=== PATIENT | male | born 1985 | race Caucasian/White ===

== ENCOUNTER 2022-07-10 09:32 | Outpatient (CLI) | payer OTHER, SELFPAY ==
[2022-07-10 18:58] LABS: Alanine Aminotransferase 33 U/L (6-50); Albumin Level 4.9 g/dL (3.5-5.1); Alkaline Phosphatase 76 U/L (38-126); Anion Gap 11 mmol/L (8-16); Aspartate Amino Transferase 77 U/L (17-59); Bilirubin,Total 0.9 mg/dL (0.2-1.3); Blood Urea Nitrogen 14 mg/dL (9-20); Calcium 9.7 mg/dL (8.4-10.2); Carbon Dioxide 25 mmol/L (22-30); Chloride 101 mmol/L (98-107); Estimated Glomerular Filt Rate > 60; Glucose 85 mg/dL (65-110); Sodium 137 mmol/L (137-145)
[2022-07-10 18:59] LABS: Cholesterol 200 mg/dL (0-200); HDL Direct 52 mg/dL; Triglycerides 129 mg/dL (<150)
[2022-07-10 19:18] LABS: LDL Cholesterol Direct 107 mg/dL
[2022-07-10 22:44] LABS: Free T4 Free Thyroxine Reflex 0.99 ng/dL (0.78-2.19)
[2022-07-11 05:24] LABS: Total Triiodothyronine (T3) 1.17 NG/ML (0.97-1.69)
[2022-07-13 19:34] LABS: Testosterone Free 44.7 pg/mL (35.0-155.0); Testosterone Total 336 ng/dL (250-1100)
== END 2022-07-10 09:33 | disposition home or self-care (01) ==
LOC: ANHGOSHLAB 09:34
PROVIDERS: Internal Medicine; PCP Family Medicine; Visit Provider Family Medicine
DX: E03.9 Hypothyroidism, unspecified (principal); Z13.228 Encounter for screening for other metabolic disorders; Z13.220 Encounter for screening for lipoid disorders; R68.82 Decreased libido
CPT/HCPCS: 36415; 80053; 80061; 84402; 84403; 84439; 84443; 84480

== ENCOUNTER 2023-01-02 12:19 | Emergency (ER) | payer OTHER, SELFPAY ==
--- NOTE | 2023-01-02 12:22 | ED.URI ---
HPI - URI/Sore Throat General Chief Complaint: Upper Respiratory Infection Stated Complaint: COUGH/CONGESTION Time Seen by Provider: 01/02/23 12:22 Source: patient and RN notes reviewed History of Present Illness HPI Narrative: Patient is a 37-year-old male who presents to urgent care with complaints of cough and congestion. Patient states he has had a cough for approximately 2 weeks and typically only coughs at night and in the morning. Patient tried Claritin 1 time without any relief at the beginning of the cough. Otherwise he has not taken anything [id number] for his symptoms. Denies any fevers, nausea, vomiting, shortness of breath, wheezing. No acute distress noted. Patient aware of the plan of care. Some parts of this dictation were generated by voice recognition software and may contain typographical and/or grammatical inaccuracies. Related Data Home Medications Medication Instructions Recorded Confirmed diazepam 5 mg tablet 5 mg PO TID PRN Anxiety 01/16/22 01/02/23 trazodone 50 mg tablet 50 mg PO DAILY 01/16/22 01/02/23 dupilumab 300 mg/2 mL subcutaneous 300 mg subcut DIRECTED 01/02/23 01/02/23 syringe (Dupixent) Allergies Allergy/AdvReac Type Severity Reaction Status Date / Time meperidine Allergy Unknown Unknown Verified 07/10/22 09:51 Review of Systems Review of Systems: CONSTITUTIONAL: Denies fever, chills, or sweats. EYES: Denies visual changes, redness, or discharge. ENT: Denies rhinorrhea, congestion, sore throat, or otalgia. CARDIOVASCULAR: Denies chest pain, palpitations, or edema. RESPIRATORY: Reports of chest congestion and cough GASTROINTESTINAL: Denies abdominal pain, nausea, vomiting, or diarrhea. GENITOURINARY: Denies dysuria or hematuria. SKIN: Denies rash or itching. MUSCULOSKELETAL: Denies back pain, joint pain, or myalgia. NEUROLOGIC: Denies headache, numbness, or weakness. All other systems reviewed are negative, except as documented in HPI. [facility] Social History Social History Smoking status: Never smoker Second hand tobacco smoke exposure: No Alcohol intake: current Substance use: never Substance use type: does not use Living arrangements: with family Occupation/Education: occupation Sexual Orientation (if Verbalized by the Patient): Straight or Heterosexual Agree to blood products: Yes Comments At the time of my signature, I reviewed and agree with the nursing past medical, surgical, social, and family history. There is no relevant family history pertinent to the patient complaint. Exam Narrative: GENERAL: This is a well-nourished, well-developed patient, in no apparent distress. HEAD: normocephalic, atraumatic. EYES: PERRL. Sclera clear/white. Vision is grossly intact. EARS: External ears normal, auditory canals clear and without drainage, TMs normal without perforation. Hearing grossly intact. NOSE: External nose normal with no obvious nasal discharge, nares without redness, no rhinorrhea. THROAT: Mucous membranes moist, posterior pharynx clear. Mild postnasal drainage NECK: Neck supple CARDIOVASCULAR: Regular rate and rhythm RESPIRATORY: Clear to auscultation. Breath sounds equal bilaterally. No wheezes, rales, or rhonchi. SKIN: warm, intact with no suspicious lesions or rash, good texture and turgor. NEURO: awake, alert, and oriented to person, place and time. There were no obvious focal neurologic abnormalities. EXTREMITIES: No clubbing, cyanosis, or edema. Course Course Level of Care: Express Care Visit Vital Signs Vital signs: Vital Signs Temperature 97.5 F L 01/02/23 12:28 Pulse Rate 61 01/02/23 12:28 Respiratory Rate 16 01/02/23 12:28 Blood Pressure 125/87 01/02/23 12:28 Pulse Oximetry 100 01/02/23 12:28 Oxygen Delivery Room Air 01/02/23 12:28 Temperature 97.5 F L 01/02/23 12:32 Pulse Rate 61 01/02/23 12:32 Respiratory Rate 16 01/02/23 12:32 B
[2023-01-02 12:28] VITALS: BP 125/87; PULSE 61; RESP 16; TEMP 36.4; O2SAT 100
[2023-01-02 12:32] VITALS: BP 125/87; PULSE 61; RESP 16; TEMP 36.4; O2SAT 100
== END 2023-01-02 12:38 | disposition home or self-care (01) ==
PROVIDERS: Emergency Provider Nurse Practitioner Family; PCP Family Medicine
DX: J00 Acute nasopharyngitis [common cold] (principal)
CPT/HCPCS: 99213; G0463

== ENCOUNTER 2023-01-09 09:06 | Outpatient (CLI) | payer OTHER, SELFPAY ==
--- NOTE | ~2023-01-09 | XR_ITS ---
EXAMINATION: XR chest 2V 01/09/2023 09:20 INDICATION: Cough for 3 weeks PROCEDURE: 2 view chest COMPARISON: No prior studies for comparison. FINDINGS: The lungs are clear. The cardiomediastinal silhouette is within normal limits. There are no pleural effusions. There is no pneumothorax suspected. IMPRESSION: 1: NO ACUTE CARDIOPULMONARY DISEASE. Reviewed, dictated and finalized at location L.
== END 2023-01-09 09:07 | disposition home or self-care (01) ==
LOC: ANHIMG 09:08
PROVIDERS: PCP Family Medicine; Visit Provider Family Medicine
DX: R05.9 Cough, unspecified (principal)
CPT/HCPCS: 71046

== ENCOUNTER 2023-01-11 14:14 | Outpatient (CLI) | payer OTHER, SELFPAY ==
[2023-01-12 04:59] LABS: Free T4 Free Thyroxine Reflex 1.53 ng/dL (0.78-2.19)
[2023-01-12 05:47] LABS: Total Triiodothyronine (T3) 1.29 NG/ML (0.97-1.69)
== END 2023-01-11 14:15 | disposition home or self-care (01) ==
LOC: ANHGOSHLAB 14:15
PROVIDERS: PCP Family Medicine; Visit Provider Family Medicine
DX: E03.9 Hypothyroidism, unspecified (principal)
CPT/HCPCS: 36415; 84439; 84443; 84480

== ENCOUNTER 2024-03-03 08:15 | Outpatient (CLI) | payer OTHER, SELFPAY ==
[2024-03-03 13:22] LABS: Alanine Aminotransferase 26 U/L (6-50); Albumin Level 4.5 g/dL (3.5-5.1); Alkaline Phosphatase 64 U/L (38-126); Anion Gap 5 mmol/L (4-12); Aspartate Amino Transferase 52 U/L (17-59); Bilirubin,Total 0.9 mg/dL (0.2-1.3); Blood Urea Nitrogen 12 mg/dL (9-20); Calcium 9.3 mg/dL (8.4-10.2); Carbon Dioxide 29 mmol/L (22-30); Chloride 104 mmol/L (98-107); Cholesterol 191 mg/dL (0-200); Estimated Glomerular Filt Rate > 60; Glucose 103 mg/dL (65-110); HDL Direct 50 mg/dL; Sodium 138 mmol/L (137-145); Triglycerides 150 mg/dL (<150)
[2024-03-03 13:33] LABS: LDL Cholesterol Direct 112 mg/dL
== END 2024-03-03 08:16 | disposition home or self-care (01) ==
LOC: ANHGOSHLAB 08:16
PROVIDERS: PCP Family Medicine; Visit Provider Family Medicine
DX: Z13.220 Encounter for screening for lipoid disorders (principal); Z13.228 Encounter for screening for other metabolic disorders; Z13.29 Encounter for screening for other suspected endocrine disorder
CPT/HCPCS: 36415; 80053; 80061; 84443

== ENCOUNTER 2024-05-07 15:33 | Emergency (ER) | payer OTHER, SELFPAY ==
--- NOTE | ~2024-05-07 | XR_ITS ---
EXAMINATION: XR lumbar spine 2-3V DATE: 05/07/2024 16:11 INDICATION: Low back pain. TECHNIQUE: 3 views of lumbar spine including standing views were obtained. COMPARISON: Lumbar spine radiographs 04/20/14 FINDINGS: There is 14 degrees dextroscoliosis of lumbar spine. Vertebral body heights are normal. The re is mildly decreased disc height at L3-L4 and moderately decreased disc height at L4-L5 and L5-S1. There is multilevel mild to moderate facet joint osteoarthritis. IMPRESSION: 1. Moderate lower lumbar spondylosis. 2. Lumbar dextroscoliosis. Reviewed, dictated and finalized at location A.
[2024-05-07 15:39] VITALS: BP 126/93; PULSE 61; RESP 16; TEMP 36.8; O2SAT 98
--- NOTE | 2024-05-07 15:47 | ED.BACK ---
HPI - Back Pain/Injury General Chief Complaint: Back Pain/Injury Stated Complaint: Back Pain Source: patient, RN notes reviewed and old records reviewed Mode of arrival: ambulatory Limitations: no limitations History of Present Illness HPI Narrative: Patient reports with complaints of low back pain. He reports that he almost always has some degree of pain, but over the past week it has gotten much worse. 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 He states that he has not slept for a few days because of the pain. He has been taking Tylenol and ibuprofen with poor results. Related Data Home Medications Medication Instructions Recorded Confirmed dupilumab 300 mg/2 mL subcutaneous 300 mg subcut DIRECTED 01/02/23 05/07/24 syringe ([id number]) trazodone 50 mg tablet 50 mg PO DAILY PRN Sleep 03/03/24 05/07/24 Allergies Allergy/AdvReac Type Severity Reaction Status Date / Time meperidine Allergy Unknown Unknown Verified 05/07/24 15:53 Review of Systems Review of Systems: All systems reviewed & are unremarkable except as noted in HPI and below Constitutional: Constitutional: Reports no additional constitutional complaints ENT: Reports system reviewed and no additional complaints, except as documented Cardiovascular: Cardiovascular: Reports no additional cardiovascular complaints Respiratory: Respiratory: Reports no additional respiratory complaints Gastrointestinal: Gastrointestinal: Reports no additional gastrointestinal complaints Genitourinary: Genitourinary: Denies urinary incontinence Musculoskeletal: Musculoskeletal: Reports as per HPI and Reports back pain Neurologic: Denies frequent falls, Denies numbness, Reports radicular pain (to hips, particularly the right), Denies Sensory deficit (Neuro), Denies tingling, Denies paresthesias and Denies weakness [facility] Social History Social History Social History: caffeine 2 cups coffee daily Smoking status: Never smoker Second hand tobacco smoke exposure: No Alcohol intake: current Drinks per week: 10 Substance use: never Substance use type: does not use Lack of Transportation: No Lack of Food: Never True Current Housing: I Have Housing Concerned About Future Housing: No Difficulty Paying Gas/Electric Bills: No Difficulty Paying for Meds: No Currently Unemployed: No Education: Master's Degree or Higher Difficulty w/ Childcare or Family Care: No Living arrangements: with family Sexual Orientation (if Verbalized by the Patient): Straight or Heterosexual Agree to blood products: Yes Comments At the time of my signature, I reviewed and agree with the nursing past medical, surgical, social, and family history. There is no relevant family history pertinent to the patient complaint. Exam Const: General: cooperative, no acute distress, alert, awake and uncomfortable Orientation/consciousness: oriented to person, oriented to place and oriented to time HENMT: Head: normal to inspection Resp: Effort & Inspection: normal respiratory effort and able to speak in complete sentences Auscultation: clear to auscultation bilaterally, no crackles, no rales, no rhonchi and no wheezes Cardio: Palpation: normal PMI Rate: regular rate Rhythm: regular rhythm Heart sounds: S1 normal heart sound present and S2 normal heart sound present Back/Spine/Pelvis: Back: no CVA tenderness Thoracic/Lumbar Spine: thoraco-lumbar ROM normal (Limited due to pain) and thoraco-lumbar spasm on the right greater than left Neuro: General: oriented to person, oriented to place and oriented to time Cranial nerves: Yes CN's II-XII intact bilaterally Gait exam (Neuro): Other gait observations present (Stiff gait noted) Sensory Exam: No Sensory deficit (Neuro) Psych: Appearance: grossly normal Thought process: Normal
[2024-05-07] MEDS: predniSONE 20 MG TABLET 60 MG PO (16:04)
== END 2024-05-07 16:32 | disposition home or self-care (01) ==
PROVIDERS: Emergency Provider Nurse Practitioner Family; PCP Family Medicine
DX: M54.16 Radiculopathy, lumbar region (principal); R03.0 Elevated blood-pressure reading, without diagnosis of hypertension
CPT/HCPCS: 72100; 99213; G0463; J7512

== ENCOUNTER 2024-08-17 09:24 | Emergency (ER) | payer OTHER, SELFPAY ==
--- NOTE | ~2024-08-17 | XR_ITS ---
Clinical Indication: Cough PA and lateral views of the chest: Comparison: 01/09/2023 Findings: The lungs are clear, without evidence of focal consolidation or pleural effusion. Cardiome diastinal silhouette is within normal limits. Bones and soft tissues are unremarkable. Impression: Normal chest. Reviewed, dictated and finalized at [facility]. [employer] TECHNICIAN Impression: Normal chest.
[2024-08-17 10:21] VITALS: BP 119/86; PULSE 88; RESP 16; TEMP 36.9; O2SAT 98
--- NOTE | 2024-08-17 10:28 | ED_ITS ---
HPI - URI/Sore Throat General Chief Complaint: Upper Respiratory Infection Stated Complaint: cough,sorethroat,congestion Time Seen by Provider: 08/17/24 09:25 Source: patient Mode of arrival: ambulatory Limitations: no limitations History of Present Illness HPI Narrative: Cal is a 39-year-old male patient presenting to the clinic today with complaints of cough, sore throat, and chest congestion. As well as sinus congestion. He denies any known fever or chills. Has had exposure to walking pneumonia. Denies any chest pain or shortness of breath currently has a productive cough with clear/white phlegm complaining of headache with sinus pressure. Symptoms have been going on for approximately 8 days MD elicited complaint: sore throat and nasal congestion Related Data Home Medications Medication Instructions Recorded Confirmed dupilumab 300 mg/2 mL subcutaneous 300 mg subcut DIRECTED 01/02/23 08/17/24 syringe (Dupixent) trazodone 50 mg tablet 50 mg PO DAILY PRN Sleep 03/03/24 08/17/24 Allergies Allergy/AdvReac Type Severity Reaction Status Date / Time meperidine Allergy Unknown Unknown Verified 08/17/24 10:23 Review of Systems Review of Systems: Pertinent positives per HPI. Patient denies any fever, chills, rash, visual changes, dizziness, shortness of breath, chest pain, palpitations, nausea, vomiting, diarrhea, constipation, abdominal pain, or any urinary issues. PMFSH Social History Social History Social History: caffeine 2 cups coffee daily Smoking status: Never smoker Second hand tobacco smoke exposure: No Alcohol intake: current Drinks per week: 10 Substance use: never Substance use type: does not use Lack of Transportation: No Lack of Food: Never True Current Housing: I Have Housing Concerned About Future Housing: No Difficulty Paying Gas/Electric Bills: No Difficulty Paying for Meds: No Currently Unemployed: No Education: Master's Degree or Higher Difficulty w/ Childcare or Family Care: No Living arrangements: with family Sexual Orientation (if Verbalized by the Patient): Straight or Heterosexual Agree to blood products: Yes Comments At the time of my signature, I reviewed and agree with the nursing past medical, surgical, social, and family history. There is no relevant family history pertinent to the patient complaint. Exam Narrative: General: Well-developed, well nourished, in no apparent distress Head: Normocephalic, atraumatic Eyes: Pupils equally round and reactive to light bilaterally, EOM intact, sclera and conjunctive clear, no discharge, lids normal Ears: TMs intact and clear, ear canals clear, no drainage, grossly hearing normal. Nose: Nares patent, clear nasal discharge, no inflammation, maxillary and frontal sinus tenderness. Mouth: Oral pharynx red without lesions or masses, good dentition, MMM. Postnasal drip Neck: Supple, trachea midline, no enlargement of anterior or posterior cervical nodes, no thyroid masses or goiter palpable. Cardio: Regular rate and rhythm, s1 and s2 normal, no murmur appreciated. Resp: Clear to auscultation bilaterally, no rhonchi, rales, wheezing or rubs Course Course Emergency Course: Portions of this record may have been created with voice recognition software. Level of Care: Express Care Visit Vital Signs Vital signs: Vital signs reviewed MDM - URI/Sore Throat MDM Narrative Medical decision making narrative: At the time of visit patient is resting comfortably on the exam table. Patient appears to be nontoxic. Diagnostics: Chest x-ray was performed is negative for any acute cardiopulmonar y process. Plan: I suspect patient has sinusitis. Prescription for prednisone, Augmentin, Tessalon Perles, and albuterol inhaler. Supportive measures were discussed with the patient and they voiced understanding discharge instructions and agrees to treatment plan. Return precautions reviewed Differential Diagnosis Differential diagnosis: Likely upper respiratory infection, otitis media, sinusitis, viral infection, bronchitis, influenza, pharyngitis and other (COVID) Imaging Data Radiologist's impression: ITS Impressions Chest X-Ray 08/17/24 10:36 Impression: Normal chest. Discharge Plan Discharge Clinical Impression: Sinusitis Qualifiers: Sinusitis location: frontal Chronicity: acute Recurrence: non-recurrent Qualified Code(s): J01.10 - Acute frontal sinusitis, unspecified Patient Disposition: Home, Self-Care Condition: Stable Instructions: Antibiotic Form, Sinusitis (ED) Additional Instructions: Chest x-rays negative for any acute cardiopulmonary process. Take prescription medications only as prescribed-prednisone, Augmentin, and albuterol inhaler Increase fluids and stay well hydrated Tylenol/motrin for pain/fever Flonase and OTC antihistamines as directed Vicks vapor rub to open sinuses Sinus rinses for congestion Cepacol spray, cough drops, throat lozenges, warm tea with honey/lemon, gargle salt water to soothe throat BRAT diet for diarrhea Clear liquids x 24 hours then advance as tolerated for nausea/vomiting Go to the ED if you develop a worsening in your condition- high fever not controlled by Tylenol or Motrin, dehydration, weakness, lethargy, shortness of breath, or chest pain. Follow up with your PCP in 3-5 days if symptoms persist. Prescriptions: New prednisone 20 mg tablet 40 mg PO DAILY 5 Days Qty: 10 0RF albuterol sulfate 90 mcg/actuation HFA aerosol inhaler 2 puff inhalation Q4-6H PRN (Reason: shortness of breath or wheezing) 30 Days Qty: 8.5 0RF amoxicillin-pot clavulanate 875-125 mg tablet 1 tablet PO Q12H 10 Days Qty: 20 0RF benzonatate 200 mg capsule 200 mg PO TID 7 Days Qty: 21 0RF No Action Dupixent Syringe 300 mg/2 mL syringe 300 mg SUBCUT DIRECTED trazodone 50 mg tablet 50 mg PO DAILY PRN (Reason: Sleep) levothyroxine 175 mcg tablet 175 mcg PO DAILY Qty: 90 1RF Follow-up/Referrals: Blayne Price DO [Primary Care Provider] - Time of Disposition: 10:49 Quality NIHSS Nursing Documentation ED NIHSS nursing documentation: reviewed/agree
== END 2024-08-17 10:52 | disposition home or self-care (01) ==
PROVIDERS: Emergency Provider Nurse Practitioner Family; PCP Family Medicine
DX: J01.10 Acute frontal sinusitis, unspecified (principal); E03.9 Hypothyroidism, unspecified
CPT/HCPCS: 71046; 99213; G0463